=== PATIENT | male | born 1975 | race African-American/Black ===

== ENCOUNTER 2020-03-13 22:30 | Emergency (ER) | payer OTHER, SELFPAY ==
[2020-03-13 22:37] VITALS: BP 121/76; PULSE 84; RESP 20; TEMP 36.9; O2SAT 96
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
[2020-03-13] MEDS: BACITRACIN OINT 0.9 GM PCKT 3 APPLIC TOP (23:36)
[2020-03-13] MEDS: HYDROCODONE/ACET 5/325 PREPACK 1 BOTTLE MISC (23:37)
== END 2020-03-14 00:09 | disposition home or self-care (01) ==
PROVIDERS: Emergency Provider Emergency Medicine; PCP Physician Assistant Medical
DX: S22.41XA Multiple fractures of ribs, right side, initial encounter for closed fracture (principal); S50.311A Abrasion of right elbow, initial encounter; S80.211A Abrasion, right knee, initial encounter; V19.9XXA Pedal cyclist (driver) (passenger) injured in unspecified traffic accident, initial encounter
CPT/HCPCS: 71101; 99281; 99283

== ENCOUNTER 2021-06-02 09:03 | Emergency (ER) | payer OTHER, SELFPAY ==
[2021-06-02 09:17] VITALS: BP 111/66; PULSE 75; RESP 18; TEMP 37.1; O2SAT 98; BMI 28.2
--- NOTE | 2021-06-02 09:37 | DI.RAD.S_ITS ---
PROCEDURE: XR CHEST 1V INDICATIONS: Flu like symptoms TECHNIQUE: One view of the chest was acquired. COMPARISON: None. FINDINGS: Surgical changes and devices: None. Lungs and pleura: Subtle patchy infiltrates bilaterally. No pleural effusions or pneumothorax. Mediastinum: Mediastinal contours appear normal. Heart size is normal. Bones and chest wall: Old right 4th, 5th, 6th and 7th rib fractures are noted. No suspicious bony lesions. Overlying soft tissues appear unremarkable. IMPRESSION: Subtle patchy infiltrates bilaterally suspicious for atypical pneumonia. Dictated by: Serina Espinal M.D. on 06/02/2021 at 10:19 Approved by: Serina Espinal M.D. on 06/02/2021 at 10:20
--- NOTE | 2021-06-02 09:44 | ED.URI ---
HPI - URI/Sore Throat General Chief Complaint: Upper Respiratory Symptoms Stated Complaint: Fever/chills, cough Time Seen by Provider: 06/02/21 09:15 Source: patient Mode of arrival: Ambulatory Limitations: no limitations History of Present Illness HPI Narrative: This is a 45-year-old male who comes with complaint of mild fevers, chills, nasal and chest congestion, dry cough. Patient denies any chest pain or pressure, no shortness of breath. No nausea or vomiting. No diarrhea constipation. He has not had any other symptoms. Patient came to be tested for COVID. He does work on the [employer]. Patient denies any other ment new medical issues. No daily medications. No major surgeries. No allergies to medications. Patient does not use tobacco. Patient is not vaccinated COVID. Related Data Home Medications Medication Instructions Recorded Confirmed No Known Home Medications 06/02/21 06/02/21 Allergies Allergy/AdvReac Type Severity Reaction Status Date / Time No Known Drug Allergies Allergy Verified 06/02/21 10:41 Review of Systems Review of Systems ROS Unobtainable: All systems reviewed & are unremarkable except as noted in HPI and below Patient History Medical History (Updated 06/02/21 @ 10:27 by Claire Ellis DO) Subcutaneous lipoma Social History lives independently: Yes Smoking Status: Never smoker Smoking Status: Never smoker alcohol intake frequency: holidays/special occasions only Substance Use Type: does not use Exam Narrative Exam Narrative: GENERAL: Alert and oriented x three, male in mild distress. HEENT: Head normocephalic, atraumatic, EOMI, pupils reactive, face symmetric NECK: Supple, full range of motion CARDIOVASCULAR: Regular rate and rhythm without murmurs, rubs or gallops. RESPIRATORY: Breath sounds equal bilaterally, no wheezes rales or rhonchi. No tachypnea accessory muscle use. ABDOMEN: Soft, nontender. Normoactive bowel sounds all 4 quadrants. No guarding or rebound, rigidity, no mass : No CVA tenderness EXTREMITIES: Normal range of motion. NEUROLOGICAL: Cranial nerves II through XII grossly intact. Moving all extremities SKIN: Warm, dry, no petechiae, no rashes or lesions. Initial Vital Signs Initial Vital Signs: Vital Signs Temperature 98.7 F 06/02/21 09:17 Pulse Rate 75 06/02/21 09:17 Respiratory Rate 18 06/02/21 09:17 Blood Pressure 111/66 06/02/21 09:17 Pulse Oximetry 98 06/02/21 09:17 Course Orders Ordered: ED Orders 06/02/21 09:15 COVID19 -Nasal swab/Pre-Proc Stat 06/02/21 09:37 XR chest 1V Stat Vital Signs Vital signs: Vital Signs - 8 hr 06/02/21 09:17 Temperature 98.7 F Pulse Rate 75 Respiratory Rate 18 Blood Pressure 111/66 Pulse Oximetry 98 [facility] - URI/Sore Throat Lab Data Labs: Lab Results 06/02/21 Range/Units 09:15 SARS-CoV-2 (PCR) Positive H (Negative) Imaging Data Chest x-ray: Radiologist's Impression: [address] [id number] ReportSigned Patient: Noé Fisher WMR#: [id number]: [id number]:[id number]/Sex: 45 / MDate of Service: 06/02/21Loc: EDAccession Number: [id number] Procedure: XR chest 1V Ordering Provider: Claire Ellis D.O. PROCEDURE: XR CHEST 1V INDICATIONS: Flu like symptoms TECHNIQUE: One view of the chest was acquired. COMPARISON: None. FINDINGS: Surgical changes and devices: None. Lungs and pleura: Subtle patchy infiltrates bilaterally. No pleural effusions or pneumothorax. Mediastinum: Mediastinal contours appear normal. Heart size is normal. Bones and chest wall: Old right 4th, 5th, 6th and 7th rib fractures are noted. No suspicious bony lesions. Overlying soft tissues appear unremarkable. IMPRESSION: Subtle patchy infiltrates bilaterally suspicious for atypical pneumonia. Dictated by: Serina Espinal M.D. on 06/02/2021 at 10:19 Approved by: Serina Espinal M.D. on 06/02/2021 at 10:20 [facility] Narrative Medical decision making narrative: This is a 45-year-old male who comes with fevers, chills and symptoms consistent with COVID who is positive with changes on chest x-ray. Patient's vitals are appropriate here today. Return precautions were discussed. All questions answered. Patient courage to get a pulse oximeter to monitor at home. Discharge Plan Departure Patient Disposition: Home Clinical Impression: Pneumonia due to COVID-19 virus Instructions: DI for COVID-19 (Suspected or Confirmed ) Activity Restrictions/Additional Instructions: *You have been diagnosed with COVID-19 pneumonia Your chest xray today does show changes consistent with pneumonia from covid. If you wish you may obtain a pulse oximeter for use at home to monitor. Please return to the ER if your pulse oximeter shows an O2 saturation less than 92%. You may take [id number] cough medication if you find this helpful. *What to do: * per recommendations from the CDC and the [facility] Department of Health * stay home except to get medical care. Restrict activities outside your home, except for getting medical care. Do not go to work, school, or public areas. Avoid using public transportation, ride sharing, or taxis. * separate yourself from other people in your home. * call ahead before visiting your doctor * Wear a face mask * Cover your coughs and sneezes * Clean your hands often * Avoid sharing household items * Clean all high-touch services every day * Monitor your symptoms and seek prompt medical attention if your illness is worsening, particularly with difficulty in breathing. Discussed continuing home isolation * for individuals with symptoms who are confirmed or suspected cases of COVID-19 and are directed to care for themselves at home, discontinue home isolation under the following conditions: 1. At least 72 hours have passed since recovery, defined as resolution of fever without the use of fever reducing medications, and improvement in respiratory symptoms (cough, shortness of breath) AND, 2. At least 7 days have passed since symptoms 1st appeared Individuals with laboratory confirmed COVID-19 who have not had any symptoms may discontinue home isolation when at least 7 days have passed since the date of their 1st COVID-19 diagnostic test and have had no subsequent illness Prescriptions: No Action No Known Home Medications RF: 0 Referrals: Yuko Coats PA-C [Primary Care Provider] -
[2021-06-02 09:51] LABS: COVID19 -Nasal RAPID POSITIVE (Negative)
[2021-06-02 10:39] VITALS: BP 107/67; PULSE 72; RESP 24; O2SAT 96
== END 2021-06-02 10:43 | disposition home or self-care (01) ==
PROVIDERS: Emergency Provider Emergency Medicine; PCP Physician Assistant Medical
DX: U07.1 COVID-19 (principal); J12.82 Pneumonia due to coronavirus disease 2019
CPT/HCPCS: 71045; 87635; 99283; C9803